=== PATIENT | female | born 1950 | race Caucasian/White ===

== ENCOUNTER 2023-08-12 10:32 | Day surgery (SDC) | payer OTHER ==
[~2023-08-12] VITALS: Ht 167.6 cm; Wt 80.3 kg
[~2023-08-12 10:32] MED LIST: IOHEXOL 300 mgI/mL, 50 mL INFUS..BTL IV ONE; LIDOCAINE 2%, 20 ML MDV ONE; NORMAL SALINE 10 ML VIAL ONE; methylPREDNISolone ACETATE 40 MG/ML ONE
[2023-08-12] MEDS ORDERED: DIPHENHYDRAMINE INJ 50 MG/ML VIAL ONE (11:16)
[2023-08-12 11:45] VITALS: O2SAT 98
[2023-08-12] MEDS: fentaNYL CITRATE/PF 100 MCG/2 ML AMP ONE (13:44)
[2023-08-12] MEDS: MIDAZOLAM HCL 5 MG/5 ML VIAL ONE (13:44)
[2023-08-12 15:03] VITALS: BP_SYST 131; PULSE 77; RESP 16
== END 2023-08-12 14:55 | disposition home or self-care (01) ==
LOC: SDS 10:32 → SMU 10:33 → SDS 14:55
PROVIDERS: ATTEND Internal Medicine
DX: M51.16 Intervertebral disc disorders with radiculopathy, lumbar region (principal); M47.816 Spondylosis without myelopathy or radiculopathy, lumbar region; I10 Essential (primary) hypertension; E11.9 Type 2 diabetes mellitus without complications; E78.5 Hyperlipidemia, unspecified; M19.90 Unspecified osteoarthritis, unspecified site; Z79.84 Long term (current) use of oral hypoglycemic drugs; Z79.899 Other long term (current) drug therapy
CPT/HCPCS: 62323; 82948; J1030; J2250; J3010; Q9967; 76000; J1200; J2001